=== PATIENT | male | born 1990 | race Two or more races ===

== ENCOUNTER 2018-11-20 15:52 | Emergency (ER) | payer OTHER ==
[~2018-11-20] VITALS: Ht 190.5 cm; Wt 122.5 kg
[~2018-11-20 15:52] MED LIST: LOSARTAN POTASS50 MG
== END 2018-11-20 20:04 | disposition home or self-care (01) ==
LOC: ER 15:52
DX: R50.9 Fever, unspecified (principal); R19.7 Diarrhea, unspecified; R10.84 Generalized abdominal pain; K52.89 Other specified noninfective gastroenteritis and colitis

== ENCOUNTER 2023-03-29 19:10 | Emergency (ER) | payer OTHER ==
[~2023-03-29] VITALS: Ht 175.3 cm; Wt 138.8 kg
[~2023-03-29 19:10] MED LIST changes: +DOLOGESIC 500-1 EACH PO; +NORFLEX100MG PO
[2023-03-29 21:29] LABS: HEMATOCRIT 44.8 % (39.0-48.0); HEMOGLOBIN 15.2 g/dL (13-16.00); MEAN CELL VOLUME 87.3 fL (80.0-100.00); MEAN CORPUSCULAR HEMOGLOBIN 29.7 pg (27.00-32.0); PLATELET COUNT 284 K/uL (150-450); RED BLOOD COUNT 5.13 M/uL (4.00-6.00); RED CELL DISTRIBUTION WIDTH 13.6 % (11.5-14.5)
[2023-03-29 21:37] LABS: BILIRUBIN TOTAL 0.77 mg/dL (0.3-1.2); CALCIUM 9.2 mg/dL (8.5-10.1); CREATININE SERUM 0.81 mg/dL (0.70-1.30); GFR 108.44; GLOBULINA 4.2 G/DL (2.4-3.5); POTASSIUM 4.5 mEq/L (3.5-5.1); TOTAL PROTEIN 8.2 gm/dL (6.4-8.2)
[2023-03-29] MEDS ORDERED: CIPRO500 MG PO (22:59)
[2023-03-29] MEDS ORDERED: PEPCID AC20 MG PO (22:59)
[2023-03-29] MEDS ORDERED: ONDANSETRON ODT8 MG PO (22:59)
== END 2023-03-29 23:31 | disposition home or self-care (01) ==
LOC: ER 19:10
PROVIDERS: General Practice
DX: K52.89 Other specified noninfective gastroenteritis and colitis (principal); R11.2 Nausea with vomiting, unspecified; R19.7 Diarrhea, unspecified; Z20.822 Contact with and (suspected) exposure to COVID-19

== ENCOUNTER 2023-06-20 20:21 | Emergency (ER) | payer OTHER ==
[~2023-06-20] VITALS: Ht 193 cm; Wt 138.3 kg
[~2023-06-20 20:21] MED LIST changes: +CIPRO500 MG PO; +ONDANSETRON ODT8 MG PO; +PEPCID AC20 MG PO
[2023-06-20] MEDS ORDERED: FAMOTIDINE/PF 20 MG/2 ML VIAL IV PUSH STA (21:43)
[2023-06-20] MEDS ORDERED: DEXAMETHASONE SODIUM PHOSPHATE 4 MG/ML VIAL IM STA (21:44)
[2023-06-20 22:04] LABS: HEMATOCRIT 43.1 % (39.0-48.0); HEMOGLOBIN 14.6 g/dL (13-16.00); MEAN CELL VOLUME 86.3 fL (80.0-100.00); MEAN CORPUSCULAR HEMOGLOBIN 29.2 pg (27.00-32.0); MEAN CORPUSCULAR HGB CONC 33.8 g/dl (32.0-36.0); PLATELET COUNT 292 K/uL (150-450); RED CELL DISTRIBUTION WIDTH 13.6 % (11.5-14.5)
[2023-06-20 22:26] LABS: ALBUMIN 4.2 gm/dL (3.4-5.0); BILIRUBIN TOTAL 0.51 mg/dL (0.3-1.2); CALCIUM 9.4 mg/dL (8.5-10.1); GFR 85.03; GLOBULINA 4.1 G/DL (2.4-3.5); POTASSIUM 3.32 mEq/L (3.5-5.1); TOTAL PROTEIN 8.3 gm/dL (6.4-8.2)
[2023-06-20] MEDS ORDERED: TYLENOL ARTHRI650 MG PO (23:21)
== END 2023-06-21 00:20 | disposition home or self-care (01) ==
LOC: ER 20:21
PROVIDERS: General Practice
DX: M94.0 Chondrocostal junction syndrome [Tietze] (principal); Z88.6 Allergy status to analgesic agent; Z88.0 Allergy status to penicillin
CPT/HCPCS: 36415; 93005; 96365; 96372; 99282; J1100; J3490

== ENCOUNTER 2024-06-25 22:37 | Emergency (ER) | payer OTHER ==
[~2024-06-25] VITALS: Ht 193 cm; Wt 134.3 kg
[~2024-06-25 22:37] MED LIST changes: +CANDESARTAN CILE4 MG PO; +TYLENOL ARTHRI650 MG PO
[2024-06-25] MEDS ORDERED: CLONAZEPAM0.5 M1 PO (22:58)
[2024-06-25] MEDS ORDERED: PROZAC20 MG PO (22:59)
[2024-06-25] MEDS ORDERED: MIRTAZAPINE7.5 MG PO (22:59)
[2024-06-26] MEDS ORDERED: AZITHROMYCIN 500 MG TABLET PO STA (00:33)
[2024-06-26] MEDS ORDERED: DIPHENHYDRAMINE HCL 50 MG/ML VIAL 1ML IV STA (00:33)
[2024-06-26] MEDS ORDERED: AZITHROMYCIN 500 MG TABLET PO ONE (00:37)
[2024-06-26] MEDS ORDERED: DIPHENHYDRAMINE HCL 50 MG/ML VIAL 1ML ONE (00:37)
[2024-06-26 01:42] LABS: HEMATOCRIT 42.3 % (39.0-48.0); HEMOGLOBIN 14.5 g/dL (13-16.00); MEAN CELL VOLUME 86.7 fL (80.0-100.00); MEAN CORPUSCULAR HEMOGLOBIN 29.6 pg (27.00-32.0); MEAN CORPUSCULAR HGB CONC 34.2 g/dl (32.0-36.0); PLATELET COUNT 308 K/uL (150-450); RED BLOOD COUNT 4.88 M/uL (4.00-6.00); RED CELL DISTRIBUTION WIDTH 13.6 % (11.5-14.5)
[2024-06-26] MEDS ORDERED: BETAMETHASONE D15 G2 TOP (02:11)
[2024-06-26] MEDS ORDERED: MUPIROCIN1 G1 TOP (02:11)
[2024-06-26] MEDS ORDERED: ZITHROMAX500 MG PO (02:11)
[2024-06-26 02:14] VITALS: BP 127/74; O2SAT 96
== END 2024-06-26 02:15 ==
LOC: ER 22:38
PROVIDERS: General Practice
DX: S80.862A Insect bite (nonvenomous), left lower leg, initial encounter (principal); S80.861A Insect bite (nonvenomous), right lower leg, initial encounter; W57.XXXA Bitten or stung by nonvenomous insect and other nonvenomous arthropods, initial encounter; Y93.89 Activity, other specified; Y92.89 Other specified places as the place of occurrence of the external cause; Y99.9 Unspecified external cause status; Z88.6 Allergy status to analgesic agent; Z88.0 Allergy status to penicillin